=== PATIENT | female | born 1935 | race Caucasian/White ===

== ENCOUNTER 2018-03-28 04:48 | Observation (INO) | payer MEDICARE, BC ==
[~2018-03-28] VITALS: Ht 162.6 cm; Wt 75.0 kg
[2018-03-28] MEDS ORDERED: LEVO100T9 (05:20)
[2018-03-28] MEDS ORDERED: FURO20TA4 PO (05:20)
[2018-03-28] MEDS ORDERED: SIMV40TA4 PO (05:20)
[2018-03-28] MEDS ORDERED: NITR0.4T48 SL (05:20)
[2018-03-28] MEDS ORDERED: QUIN324C4 (05:20)
[2018-03-28] MEDS ORDERED: METO-384 (05:20)
[2018-03-28] MEDS ORDERED: ASPI-611 PO (05:20)
[2018-03-28] MEDS ORDERED: normal saline 1000ml 1,000 ML IV SCH (05:21)
[2018-03-28] MEDS ORDERED: diphenhydrAMINE 25mg capsule PO PRN (05:25)
[2018-03-28] MEDS ORDERED: magnesium hydroxide 30ml (MOM) UD suspension PO PRN (05:25)
[2018-03-28] MEDS ORDERED: ondansetron/PF 4mg/2ml inj IV PRN (05:25)
[2018-03-28] MEDS ORDERED: HYDROmorphone 1 mg/ml syringe IV PRN (05:25)
[2018-03-28] MEDS ORDERED: mag hydrox/Alum hydrox/simeth 30ml oral suspension PO PRN (05:25)
[2018-03-28] MEDS ORDERED: HYDROcodone/acetaminophen 5mg/325mg tablet PO PRN (05:25)
[2018-03-28] MEDS ORDERED: bisacodyl 10mg suppository rectal RC PRN (05:25)
[2018-03-28] MEDS ORDERED: morphine 2 MG/ML inj. syringe IV PRN (05:25)
[2018-03-28] MEDS ORDERED: metoclopramide 5 mg/ml inj IV PRN (05:25)
[2018-03-28] MEDS ORDERED: diphenhydrAMINE 50 mg/ml inj IV PRN (05:25)
[2018-03-28] MEDS ORDERED: acetaminophen 650mg rectal suppository RC PRN (05:25)
[2018-03-28] MEDS ORDERED: acetaminophen 325mg tablet PO PRN ×2 (05:25)
[2018-03-28] MEDS ORDERED: MESSAGE TO PHARMACY PO ONE (05:30)
[2018-03-28] MEDS ORDERED: METO50TA7 PO (05:30)
[2018-03-28] MEDS ORDERED: insulin Lispro (HumaLOG) vial - multi-dose SQ SCH (05:30)
[2018-03-28] MEDS ORDERED: glucagon, human recombinant 1mg kit SUBCUT PRN (05:30)
[2018-03-28] MEDS ORDERED: LEVO100T PO (05:30)
[2018-03-28] MEDS ORDERED: dextrose ORAL solution 15 GM/59 ML bottle PO PRN ×2 (05:30)
[2018-03-28] MEDS ORDERED: QUIN324C PO (05:30)
[2018-03-28] MEDS ORDERED: dextrose 50%-water 50ml dispensing syringe IV PRN ×2 (05:30)
[2018-03-28 06:00] VITALS: BP 149/54
[2018-03-28 06:11] LABS: HEMOGLOBIN A1C 7.1 % (4.5-6.2)
[2018-03-28 06:24] LABS: PARTIAL THROMBOPLASTIN TIME 25 SECONDS (22-32)
[2018-03-28 06:27] LABS: MAGNESIUM 2.2 MG/DL (1.5-2.4); PHOSPHORUS 3.8 MG/DL (2.3-4.5)
[2018-03-28] MEDS ORDERED: docusate sod 100mg capsule PO SCH (08:00)
[2018-03-28] MEDS ORDERED: nitrofuran/nitrofuran macrocrysal 100 MG capsule PO SCH (08:30)
[2018-03-28 10:00] VITALS: BP 111/72
[2018-03-28] MEDS ORDERED: nitroGLYCERIN 0.4mg SUBLingual tab SL PRN (10:45)
[2018-03-28] MEDS ORDERED: levoTHYROXINE 100mcg tablet PO SCH (10:45)
[2018-03-28 11:24] LABS: BASOPHILS % (AUTO) 0.8 % (0-1); EOSINOPHILS # (AUTO) 0.3 X10'3 (0-0.9); EOSINOPHILS % (AUTO) 4.3 % (0-6); HEMATOCRIT 31.4 % (35.0-45.0); HEMOGLOBIN 10.5 g/dl (12.0-16.0); LYMPHOCYTES # (AUTO) 1.1 X10'3 (1.1-4.8); LYMPHOCYTES % (AUTO) 16.8 % (21-51); MEAN CORPUSCULAR HEMOGLOBIN 30.9 PG (27.0-31.0); MEAN CORPUSCULAR HGB CONC 33.5 % (33.0-36.5); MEAN CORPUSCULAR VOLUME 92.1 FL (78-98); MEAN PLATELET VOLUME 8.7 FL (7.4-10.4); MONOCYTES # (AUTO) 0.7 X10'3 (0-0.9); MONOCYTES % (AUTO) 10.7 % (2-12); NEUTROPHILS # (AUTO) 4.4 X10'3 (1.8-7.7); NEUTROPHILS % (AUTO) 67.4 % (42-75); PLATELET COUNT 173 X10'3 (140-440); RED BLOOD COUNT 3.41 X10'6 (4.20-5.60); RED CELL DISTRIBUTION WIDTH 12.8 % (11.5-14.5); WHITE BLOOD COUNT 6.5 X10'3 (4.5-11.0)
[2018-03-28 11:43] LABS: ALANINE AMINOTRANSFERASE 16 U/L (12-78); ALBUMIN 3.1 G/DL (3.4-5.0); ALBUMIN/GLOBULIN RATIO 0.8 (1.1-1.5); ALKALINE PHOSPHATASE 67 IU/L (46-116); ANION GAP 10 (8-16); ASPARTATE AMINO TRANSFERASE 19 U/L (10-37); BILIRUBIN,TOTAL 0.6 MG/DL (0.1-1.0); BLOOD UREA NITROGEN 33 MG/DL (7-18); BUN/CREATININE RATIO 16.8 (6.6-38.0); CALCIUM 8.3 MG/DL (8.5-10.1); CHLORIDE 103 MMOL/L (99-107); CHOL/HDL RATIO 2.3 (0.00-4.99); CHOLESTEROL 114 MG/DL (0-200); CREATININE 1.96 MG/DL (0.40-0.90); GLUCOSE 114 MG/DL (70-104); HDL CHOLESTEROL 49 MG/DL (35-60); LDL CHOLESTEROL 50 MG/DL (50-100); POTASSIUM 3.8 MMOL/L (3.5-5.1); SODIUM 141 MMOL/L (135-145); TOTAL CARBON DIOXIDE 27.6 MMOL/L (24-32); TOTAL PROTEIN 6.9 G/DL (6.4-8.2); TRIGLYCERIDES 88 MG/DL (20-135); eGFR 24 ML/MIN
[2018-03-28] MEDS ORDERED: CLOP75TA15 PO (14:42)
[2018-03-28] MEDS ORDERED: furosemide 20MG tablet PO SCH (20:00)
[2018-03-28] MEDS ORDERED: atorvastatin 20mg tablet PO SCH (21:00)
[2018-03-28] MEDS ORDERED: temazepam 15mg capsule PO PRN (21:00)
[2018-03-28] MEDS ORDERED: famotidine 20mg tablet PO SCH (21:00)
[2018-03-29 05:24] LABS: RPR Non Reactive (Non Reactive)
[2018-03-29] MEDS ORDERED: metoprolol succinate 25mg (24-HOUR) SR. Tablet PO SCH (08:00)
[2018-03-29] MEDS ORDERED: aspirin 81mg tab.chew PO SCH (08:30)
== END 2018-03-28 16:10 | disposition home or self-care (01) ==
LOC: ORTHO 4S 04:48 → INTOOBSV 04:48
PROVIDERS: ADMIT Family Medicine; ATTEND Family Medicine
DX: G45.9 Transient cerebral ischemic attack, unspecified (principal); N17.9 Acute kidney failure, unspecified; I12.9 Hypertensive chronic kidney disease with stage 1 through stage 4 chronic kidney disease, or unspecified chronic kidney disease; E11.22 Type 2 diabetes mellitus with diabetic chronic kidney disease; N18.9 Chronic kidney disease, unspecified; N39.0 Urinary tract infection, site not specified; I25.10 Atherosclerotic heart disease of native coronary artery without angina pectoris; E03.9 Hypothyroidism, unspecified; D64.9 Anemia, unspecified; R47.81 Slurred speech; E78.5 Hyperlipidemia, unspecified; R42 Dizziness and giddiness; Z66 Do not resuscitate; Z85.3 Personal history of malignant neoplasm of breast; Z85.41 Personal history of malignant neoplasm of cervix uteri; Z85.51 Personal history of malignant neoplasm of bladder
CPT/HCPCS: 36415; 70551; 80053; 80061; 82948; 83036; 83735; 83880; 84100; 84443; 85025; 85610; 85730; 86592; 87070; 93306; 93880; G0378; J7030